=== PATIENT | male | born 1960 | race African-American/Black ===

== ENCOUNTER 2017-02-03 14:58 | Inpatient (IN) | payer SELFPAY ==
[~2017-02-03] VITALS: Ht 182.9 cm; Wt 123.2 kg
[2017-02-03] MEDS ORDERED: MORPHINE SULF INJ 2 MG/ML SYRINGE 1ML IV PRN (16:45)
[2017-02-03] MEDS ORDERED: ONDANSETRON HCL 4 MG/2 ML VIAL IV ONE ×2 (16:45→19:15)
[2017-02-03 17:15] LABS: Basophils # (auto) 0.1 uL; Eosinophils # (auto) 0.1 uL; Hemoglobin 10.7 g/dL (13.5-17.5); Mean Platelet Volume 8.9 fL (6.9-10.8); Nucleated Red Blood Cells % 0.1 %; White Blood Cell 7.5 10^3/uL (4.4-10.8)
[2017-02-03 17:18] LABS: Basophils % (auto) 0.9 % (0.0-2.0); Eosinophils % (auto) 1.2 % (0.0-7.0); Lymphocytes # (auto) 1.7 uL; Mean Corpuscular Hemoglobin 24.8 pg (28.0-32.0); Mean Corpuscular Hgb Conc. 32.4 g/dL (32.0-36.0); Mean Corpuscular Volume 76.4 fL (80.0-100.0); Monocytes # (auto) 0.7 uL; Monocytes % (auto) 9.3 % (0.0-12.0); Neutrophils # (auto) 4.9 uL; Neutrophils % (auto) 65.6 % (37.0-80.0); Platelet Count (auto) 280 10^3/uL (140-450); Red Cell Distribution Width 18.1 % (11.8-14.3)
[2017-02-03 17:30] LABS: Partial Thromboplastin Time 30.4 sec (22.64-33.71); Prothrombin Time 10.9 sec (9.37-12.3)
[2017-02-03 17:35] LABS: Albumin 3.4 g/dL (3.4-5.0); Anion Gap 6 (5-15); Blood Urea Nitrogen 11 mg/dL (7-18); Calcium 8.9 mg/dL (8.5-10.1); Carbon Dioxide 28 mmol/L (21-32); Chloride 105 mmol/L (98-107); Glucose 103 mg/dL (74-106); Magnesium 2.1 mg/dL (1.6-2.6); Potassium 4.2 mmol/L (3.5-5.1); Sodium 139 mmol/L (136-145)
[2017-02-03 17:37] LABS: BUN/Creatinine Ratio 9.8; GFR African American 87 mL/min; GFR Non-African American 72 mL/min
[2017-02-03 17:42] LABS: Alkaline Phosphatase 128 U/L (45-117); Aspartate Aminotransferase 33 U/L (15-37); Bilirubin, Total 0.5 mg/dL (0.2-1.0); Total Protein 8.1 g/dL (6.4-8.2)
[2017-02-03 17:43] LABS: B-Type Natriuretic Peptide 7.02 pg/mL (0-100)
[2017-02-03 17:44] LABS: Temperature: 21.9 C (20.0-25.0)
[2017-02-03] MEDS ORDERED: MORPHINE SULF INJ 2 MG/ML SYRINGE 1ML IV ONE (19:15)
[2017-02-03] MEDS ORDERED: IOHEXOL 350 MG/ML 100ML IJ ONE (19:48)
[2017-02-03] MEDS ORDERED: ENOXAPARIN SOD 120 MG/0.8 ML SYRINGE SC ONE ×2 (22:00→22:30)
[2017-02-03] MEDS: FAMOTIDINE 20 MG TAB PO SCH (22:00)
[2017-02-03] MEDS ORDERED: ACETAMINOPHEN 325 MG TAB PO PRN (22:00)
[2017-02-03] MEDS ORDERED: TEMAZEPAM 15 MG CAP PO PRN (22:00)
[2017-02-03] MEDS ORDERED: NITROGLYCERIN 0.4 MG SL TAB SL PRN (22:00)
[2017-02-03] MEDS: METOPROLOL TARTRATE 25 MG TAB PO SCH (22:43)
[2017-02-03] MEDS: ONDANSETRON HCL 4 MG/2 ML VIAL IV PRN (23:32)
[2017-02-03] MEDS: MORPHINE SULF INJ 2 MG/ML SYRINGE 1ML IV PRN (23:32)
[2017-02-04] MEDS ORDERED: ATOR10TA52 PO (00:56)
[2017-02-04] MEDS ORDERED: FURO40TA PO (00:56)
[2017-02-04] MEDS ORDERED: ASPI81TA13 PO (00:56)
[2017-02-04] MEDS ORDERED: MET50T PO (00:56)
[2017-02-04] MEDS ORDERED: CLOP75TA28 PO (00:56)
[2017-02-04] MEDS: ONDANSETRON HCL 4 MG/2 ML VIAL IV PRN ×5 (03:31→21:37)
[2017-02-04] MEDS: MORPHINE SULF INJ 2 MG/ML SYRINGE 1ML IV PRN ×5 (03:31→21:37)
[2017-02-04 05:00] VITALS: BP 128/70
[2017-02-04 05:59] LABS: Basophils # (auto) 0.1 uL; Lymphocytes # (auto) 2.5 uL; Mean Corpuscular Hgb Conc. 32.3 g/dL (32.0-36.0); Monocytes # (auto) 0.7 uL; Neutrophils # (auto) 2.8 uL; Neutrophils % (auto) 44.2 % (37.0-80.0); Nucleated Red Blood Cells % 0.1 %; Red Cell Distribution Width 18.3 % (11.8-14.3)
[2017-02-04 06:04] LABS: Basophils % (auto) 1.1 % (0.0-2.0); Eosinophils # (auto) 0.3 uL; Eosinophils % (auto) 4.6 % (0.0-7.0); Hematocrit 32.3 % (41.0-53.0); Hemoglobin 10.4 g/dL (13.5-17.5); Lymphocytes % (auto) 39.3 % (10.0-50.0); Mean Corpuscular Volume 76.8 fL (80.0-100.0); Monocytes % (auto) 10.8 % (0.0-12.0); Platelet Count (auto) 280 10^3/uL (140-450); White Blood Cell 6.3 10^3/uL (4.4-10.8)
[2017-02-04 06:06] LABS: Mean Corpuscular Hemoglobin 24.9 pg (28.0-32.0)
[2017-02-04 06:10] LABS: Blood Urea Nitrogen 12 mg/dL (7-18); Calcium 8.4 mg/dL (8.5-10.1); Chloride 104 mmol/L (98-107); Potassium 3.5 mmol/L (3.5-5.1); Sodium 140 mmol/L (136-145)
[2017-02-04 06:13] LABS: Albumin 2.9 g/dL (3.4-5.0); Anion Gap 8 (5-15); Aspartate Aminotransferase 26 U/L (15-37); BUN/Creatinine Ratio 9.8; Carbon Dioxide 28 mmol/L (21-32); GFR African American 78 mL/min; GFR Non-African American 64 mL/min; Glucose 110 mg/dL (74-106)
[2017-02-04 06:15] LABS: Alkaline Phosphatase 110 U/L (45-117); Bilirubin, Total 0.4 mg/dL (0.2-1.0); Total Protein 7.3 g/dL (6.4-8.2)
[2017-02-04 09:03] VITALS: BP 120/84
[2017-02-04] MEDS ORDERED: ENOXAPARIN SOD 40 MG/0.4 ML SYRINGE SC SCH (10:00)
[2017-02-04] MEDS ORDERED: ASPirin 81 mg TAB PO SCH (10:00)
[2017-02-04] MEDS: APIXABAN 5 MG TAB PO SCH ×2 (10:11→21:38)
[2017-02-04] MEDS: CLOPIDOGREL BISULFATE 75 MG TAB PO SCH (10:11)
[2017-02-04] MEDS: METOPROLOL TARTRATE 25 MG TAB PO SCH ×2 (10:12→21:38)
[2017-02-04] MEDS: FAMOTIDINE 20 MG TAB PO SCH ×2 (10:12→21:38)
[2017-02-04] MEDS: FUROSEMIDE 20 MG TAB PO SCH (10:12)
[2017-02-04 12:50] VITALS: BP 119/90
[2017-02-04 17:05] VITALS: BP 111/69
[2017-02-04 21:52] VITALS: BP 154/84
[2017-02-05] MEDS: MORPHINE SULF INJ 2 MG/ML SYRINGE 1ML IV PRN ×6 (00:58→22:18)
[2017-02-05 05:00] VITALS: BP 134/73
[2017-02-05] MEDS: ONDANSETRON HCL 4 MG/2 ML VIAL IV PRN ×5 (05:39→22:18)
[2017-02-05 09:00] VITALS: BP 103/53
[2017-02-05] MEDS: FAMOTIDINE 20 MG TAB PO SCH ×2 (09:44→22:18)
[2017-02-05] MEDS: CLOPIDOGREL BISULFATE 75 MG TAB PO SCH (09:44)
[2017-02-05] MEDS: APIXABAN 5 MG TAB PO SCH ×2 (09:44→22:17)
[2017-02-05] MEDS: FUROSEMIDE 20 MG TAB PO SCH (09:44)
[2017-02-05] MEDS: METOPROLOL TARTRATE 25 MG TAB PO SCH ×2 (09:45→22:17)
[2017-02-05 13:00] VITALS: BP 130/76
[2017-02-05 17:00] VITALS: BP 132/88
[2017-02-05] MEDS ORDERED: diphenhdrAMINE HCL 25 MG CAP PO ONE (18:12)
[2017-02-05] MEDS ORDERED: diphenhdrAMINE HCL 25 MG CAP PO PRN (18:15)
[2017-02-05 22:00] VITALS: BP 107/65
[2017-02-06] VITALS (8 sets, daily range): BP systolic 102–154; BP diastolic 47–104
[2017-02-06] MEDS: MORPHINE SULF INJ 2 MG/ML SYRINGE 1ML IV PRN ×4 (08:20→20:51)
[2017-02-06] MEDS: ONDANSETRON HCL 4 MG/2 ML VIAL IV PRN ×3 (08:20→20:57)
[2017-02-06] MEDS: METOPROLOL TARTRATE 25 MG TAB PO SCH ×2 (10:00→21:42)
[2017-02-06] MEDS: APIXABAN 5 MG TAB PO SCH ×2 (12:47→21:41)
[2017-02-06] MEDS: FAMOTIDINE 20 MG TAB PO SCH ×2 (12:49→21:41)
[2017-02-06] MEDS: FUROSEMIDE 20 MG TAB PO SCH (12:49)
[2017-02-06] MEDS: CLOPIDOGREL BISULFATE 75 MG TAB PO SCH (12:49)
[2017-02-06] MEDS: HYDROcodone-ACET 5/325MG TAB PO PRN (15:05)
[2017-02-07] MEDS: MORPHINE SULF INJ 2 MG/ML SYRINGE 1ML IV PRN ×6 (00:26→21:07)
[2017-02-07] MEDS: HYDROcodone-ACET 5/325MG TAB PO PRN (02:07)
[2017-02-07] MEDS: ONDANSETRON HCL 4 MG/2 ML VIAL IV PRN ×5 (04:14→21:07)
[2017-02-07 04:41] VITALS: BP 103/63
[2017-02-07 08:21] VITALS: BP 109/60
[2017-02-07] MEDS: METOPROLOL TARTRATE 25 MG TAB PO SCH ×2 (09:14→22:00)
[2017-02-07] MEDS: FUROSEMIDE 20 MG TAB PO SCH (09:14)
[2017-02-07] MEDS: APIXABAN 5 MG TAB PO SCH ×2 (09:14→09:25)
[2017-02-07] MEDS: CLOPIDOGREL BISULFATE 75 MG TAB PO SCH (09:15)
[2017-02-07] MEDS: FAMOTIDINE 20 MG TAB PO SCH ×2 (09:15→22:00)
[2017-02-07 11:45] VITALS: BP 123/68
[2017-02-07 12:20] LABS: INR 1.05 (0.9-1.15); Partial Thromboplastin Time 33.3 sec (22.64-33.71); Prothrombin Time 11.4 sec (9.37-12.3)
[2017-02-07 12:44] LABS: Albumin 3.4 g/dL (3.4-5.0); BUN/Creatinine Ratio 11.5; Bilirubin, Total 0.2 mg/dL (0.2-1.0); Calcium 8.3 mg/dL (8.5-10.1); Potassium 4.1 mmol/L (3.5-5.1); Total Protein 7.9 g/dL (6.4-8.2)
[2017-02-07] MEDS: ENOXAPARIN SOD 120 MG/0.8 ML SYRINGE SC SCH ×2 (13:19→22:16)
[2017-02-07 15:55] VITALS: BP 153/77
[2017-02-07] MEDS ORDERED: WARFARIN SODIUM 2.5 MG TAB PO ONE (17:00)
[2017-02-08] MEDS: ONDANSETRON HCL 4 MG/2 ML VIAL IV PRN ×5 (04:58→23:29)
[2017-02-08] MEDS: MORPHINE SULF INJ 2 MG/ML SYRINGE 1ML IV PRN ×5 (04:59→23:29)
[2017-02-08 05:00] VITALS: BP 131/88
[2017-02-08 06:22] LABS: INR 1.11 (0.9-1.15); Partial Thromboplastin Time 37.8 sec (22.64-33.71); Prothrombin Time 12.1 sec (9.37-12.3)
[2017-02-08 06:39] LABS: Potassium 3.8 mmol/L (3.5-5.1)
[2017-02-08 06:48] LABS: Albumin 3.5 g/dL (3.4-5.0); BUN/Creatinine Ratio 10.1; Bilirubin, Total 0.4 mg/dL (0.2-1.0); Calcium 8.5 mg/dL (8.5-10.1); Total Protein 7.8 g/dL (6.4-8.2)
[2017-02-08 09:00] VITALS: BP 132/76
[2017-02-08] MEDS: FAMOTIDINE 20 MG TAB PO SCH ×2 (10:00→21:58)
[2017-02-08] MEDS: CLOPIDOGREL BISULFATE 75 MG TAB PO SCH (10:55)
[2017-02-08] MEDS: FUROSEMIDE 20 MG TAB PO SCH (11:00)
[2017-02-08] MEDS: METOPROLOL TARTRATE 25 MG TAB PO SCH ×2 (11:00→21:58)
[2017-02-08] MEDS: ENOXAPARIN SOD 120 MG/0.8 ML SYRINGE SC SCH ×2 (11:00→21:54)
[2017-02-08 12:32] LABS: Eosinophils # (auto) 0.3 uL; Mean Corpuscular Hgb Conc. 31.9 g/dL (32.0-36.0); Monocytes # (auto) 0.7 uL; Monocytes % (auto) 9.7 % (0.0-12.0); Neutrophils # (auto) 3.5 uL
[2017-02-08 12:34] LABS: Basophils # (auto) 0.2 uL; Basophils % (auto) 2.3 % (0.0-2.0); Eosinophils % (auto) 3.4 % (0.0-7.0); Hematocrit 34.8 % (41.0-53.0); Hemoglobin 11.1 g/dL (13.5-17.5); Lymphocytes # (auto) 2.8 uL; Lymphocytes % (auto) 37.9 % (10.0-50.0); Mean Corpuscular Hemoglobin 24.7 pg (28.0-32.0); Mean Corpuscular Volume 77.6 fL (80.0-100.0); Mean Platelet Volume 8.3 fL (6.9-10.8); Neutrophils % (auto) 46.7 % (37.0-80.0); Nucleated Red Blood Cells % 0.1 %; Platelet Count (auto) 306 10^3/uL (140-450); Red Cell Distribution Width 18.2 % (11.8-14.3); White Blood Cell 7.4 10^3/uL (4.4-10.8)
[2017-02-08 16:23] VITALS: BP 126/76
[2017-02-08] MEDS ORDERED: WARFARIN SODIUM 2.5 MG TAB PO ONE (17:00)
[2017-02-08 22:00] VITALS: BP 130/69
[2017-02-09] MEDS: ONDANSETRON HCL 4 MG/2 ML VIAL IV PRN ×4 (04:30→19:58)
[2017-02-09] MEDS: MORPHINE SULF INJ 2 MG/ML SYRINGE 1ML IV PRN ×4 (04:30→19:59)
[2017-02-09 05:00] VITALS: BP 108/77
[2017-02-09] MEDS: CLOPIDOGREL BISULFATE 75 MG TAB PO SCH (08:58)
[2017-02-09] MEDS: METOPROLOL TARTRATE 25 MG TAB PO SCH ×2 (08:59→22:00)
[2017-02-09] MEDS: FUROSEMIDE 20 MG TAB PO SCH (08:59)
[2017-02-09 09:00] VITALS: BP 133/96
[2017-02-09] MEDS: ENOXAPARIN SOD 120 MG/0.8 ML SYRINGE SC SCH ×2 (09:00→22:24)
[2017-02-09] MEDS: FAMOTIDINE 20 MG TAB PO SCH ×2 (09:03→22:00)
[2017-02-09 10:17] LABS: INR 1.1 (0.9-1.15); Partial Thromboplastin Time 37.1 sec (22.64-33.71)
[2017-02-09 10:27] LABS: Albumin 3.8 g/dL (3.4-5.0); BUN/Creatinine Ratio 10.9; Bilirubin, Total 0.3 mg/dL (0.2-1.0); Calcium 8.9 mg/dL (8.5-10.1); Total Protein 8.5 g/dL (6.4-8.2)
[2017-02-09 13:00] VITALS: BP 149/90
[2017-02-09 16:03] VITALS: BP 116/71
[2017-02-09] MEDS ORDERED: WARFARIN SODIUM 2.5 MG TAB PO ONE (17:00)
[2017-02-09 22:00] VITALS: BP 136/82
[2017-02-10] MEDS: MORPHINE SULF INJ 2 MG/ML SYRINGE 1ML IV PRN ×3 (00:06→11:42)
[2017-02-10] MEDS: ONDANSETRON HCL 4 MG/2 ML VIAL IV PRN ×2 (00:06→06:13)
[2017-02-10 06:04] VITALS: BP 97/46
[2017-02-10 06:57] LABS: Albumin 3.4 g/dL (3.4-5.0); BUN/Creatinine Ratio 9.9; Calcium 8.5 mg/dL (8.5-10.1); Potassium 3.8 mmol/L (3.5-5.1)
[2017-02-10 07:00] LABS: Bilirubin, Total 0.4 mg/dL (0.2-1.0); Total Protein 7.7 g/dL (6.4-8.2)
[2017-02-10 07:14] LABS: INR 1.52 (0.9-1.15)
[2017-02-10 07:23] LABS: Partial Thromboplastin Time > 170.00 sec (22.64-33.71)
[2017-02-10 07:36] VITALS: BP 116/69
[2017-02-10] MEDS: FAMOTIDINE 20 MG TAB PO SCH (10:00)
[2017-02-10] MEDS: CLOPIDOGREL BISULFATE 75 MG TAB PO SCH (10:00)
[2017-02-10] MEDS: FUROSEMIDE 20 MG TAB PO SCH (10:26)
[2017-02-10] MEDS: METOPROLOL TARTRATE 25 MG TAB PO SCH (10:26)
[2017-02-10] MEDS: ENOXAPARIN SOD 120 MG/0.8 ML SYRINGE SC SCH (10:28)
[2017-02-10 11:53] VITALS: BP 134/88
[2017-02-10] MEDS ORDERED: WARFARIN SODIUM 5 MG TAB PO ONE (17:00)
[2017-02-11] MEDS ORDERED: APIXABAN 5 MG TAB PO SCH (10:00)
== END 2017-02-10 13:30 | disposition left against medical advice (07) | DRG 176 ==
LOC: ER 14:58 → TELE 14:59 → TELE-WESTW 23:55
PROVIDERS: ADMIT Nurse Practitioner; ATTEND Internal Medicine Pulmonary Disease
PROC: 05HY33Z Insertion of Infusion Device into Upper Vein, Percutaneous Approach (ICD-10-PCS; principal; 2017-02-03)
DX: I26.99 Other pulmonary embolism without acute cor pulmonale (principal); I11.0 Hypertensive heart disease with heart failure; I50.9 Heart failure, unspecified; E66.9 Obesity, unspecified; E78.5 Hyperlipidemia, unspecified; M19.90 Unspecified osteoarthritis, unspecified site; I25.10 Atherosclerotic heart disease of native coronary artery without angina pectoris; F32.9 Major depressive disorder, single episode, unspecified; Z53.21 Procedure and treatment not carried out due to patient leaving prior to being seen by health care provider; I70.0 Atherosclerosis of aorta; Z79.02 Long term (current) use of antithrombotics/antiplatelets; Z79.82 Long term (current) use of aspirin; Z82.49 Family history of ischemic heart disease and other diseases of the circulatory system; Z91.19 Patient's noncompliance with other medical treatment and regimen; Z68.36 Body mass index [BMI] 36.0-36.9, adult; I25.2 Old myocardial infarction; Z95.5 Presence of coronary angioplasty implant and graft; Z88.0 Allergy status to penicillin
CPT/HCPCS: 36415; 71010; 71275; 80053; 83735; 83880; 84443; 84484; 85025; 85379; 85610; 85730; 93005; 93306; 93970; 94761; 96374; 96375; 96376; J2405